=== PATIENT | male | born 1980 | race Caucasian/White ===

== ENCOUNTER 2016-05-22 17:50 | Emergency (ER) | payer MEDICAID ==
[2016-05-22] MEDS ORDERED: ASPIRIN 81 MG CHEW TAB ONE (17:59)
[2016-05-22] MEDS ORDERED: ORPHENADRINE 60 MG/2 ML AMP ONE (18:29)
== END 2016-05-22 21:01 | disposition home or self-care (01) ==
LOC: ER 17:50
DX: R07.2 Precordial pain (principal); K21.9 Gastro-esophageal reflux disease without esophagitis; Z95.2 Presence of prosthetic heart valve; Z79.82 Long term (current) use of aspirin; Z86.14 Personal history of Methicillin resistant Staphylococcus aureus infection; Z87.891 Personal history of nicotine dependence
CPT/HCPCS: 36415; 71010; 80053; 82550; 83735; 84484; 85025; 85610; 85730; 93005; 96374